=== PATIENT | female | born 1985 | race Caucasian/White ===

== ENCOUNTER 2019-12-02 20:20 | Emergency (ER) | payer OTHER, SELFPAY ==
--- NOTE | ~2019-12-02 | XR_ITS ---
XR foot LT min 3V 12/02/2019 21:02 Indication: Left foot pain Procedure: 4 views left foot Comparison: No prior studies for comparison. Findings: No acute fracture or traumatic malalignment. There are prominent degenerative calcaneal ent hesophytes. Lisfranc joint intact. No focal soft tissue abnormality. No foreign bodies. There is mild osteoarthritis of the first MTP joint. Impression: 1: No acute fracture. Reviewed, dictated and finalized at location A. Impression: 1: No acute fracture.
[2019-12-02 20:21] VITALS: RESP 16
[2019-12-02 20:38] VITALS: BP 128/71; PULSE 76; RESP 18; TEMP 36.6; O2SAT 100
--- NOTE | 2019-12-02 23:57 | ED.LOWEXIN ---
HPI - Extremity Injury (Lower) General Chief Complaint: Extremity Injury, Lower Stated Complaint: left foot injury Time Seen by Provider: 12/02/19 23:57 Source: patient and family Mode of arrival: ambulatory Limitations: no limitations History of Present Illness HPI Narrative: Patient is a 34-year-old female who presents for evaluation of right foot irritation and itchiness as well as left foot and heel pain. Heel pain in the left foot has been present for over a month. Patient states she often wears shoes that are not quite supportive and notices the pain is worse at the end of the day. No injuries. No falls. No trauma to the foot. Patient has been taking anti-inflammatories with some relief. No bruising or rash to the left foot. She does report itching, red rash to the right foot. She has not tried any [id number] medications for this. She denies any calf pain, fever, chills. No cough or shortness of breath. No chest pain. Related Data Allergies Allergy/AdvReac Type Severity Reaction Status Date / Time No Known Allergies Allergy Verified 12/02/19 20:20 Review of Systems Review of Systems: Narrative: CONSTITUTIONAL: Denies fever CARDIOVASCULAR: Denies chest pain RESPIRATORY: Denies cough or dyspnea. GASTROINTESTINAL: Denies abdominal pain SKIN: Reports red rash to the top of right foot MUSCULOSKELETAL: Denies back pain, reports left heel pain NEUROLOGIC: Denies headache PMFSH Past Medical History Medical History (Updated 12/03/19 @ 00:33 by Jeanna Castro MD) No pertinent past medical history Surgical History Surgical History (Updated 12/03/19 @ 00:33 by Jeanna Castro MD) History of tonsillectomy Family History Family History (Updated 10/21/16 @ 10:15 by DOCTOR UNKNOWN) Other Diabetes mellitus Hypertension Social History Social History Smoking status: Never smoker Alcohol intake: current Gender identity (if verbalized by the patient): Female Exam Narrative: Exam Narrative: GENERAL: Awake, alert, conversant HEAD: Normocephalic, atraumatic. EYES: PERRLA and EOMI. ENT: Nares clear, no rhinorrhea or epistaxis. Mucous membranes moist. NECK: Supple. CHEST: No respiratory distress, breathing even and non labored HEART: Regular rate, sinus rhythm ABDOMEN:Non distended, non tender EXTREMITIES: Normal range of motion. No edema. No calf tenderness bilaterally. No erythema or warmth. Full flexion and extension at the left ankle without pain or tenderness. SKIN: Dorsal aspect of right foot is erythematous, mildly excoriated. Concerning for tinea type lesions. No blistering, vesicles, no streaking erythema, mild warmth. NEURO:No focal deficits. Alert and oriented x3 Course Vital Signs Vital signs: Vital Signs Respiratory Rate 16 12/02/19 20:21 Temperature 36.6 C 12/02/19 20:38 Pulse Rate 72 12/03/19 00:20 Respiratory Rate 18 12/03/19 00:20 Blood Pressure 121/65 12/03/19 00:20 Pulse Oximetry 100 12/03/19 00:20 MDM - Extremity Injury (Lower) MDM Narrative Medical decision making narrative: Patient presented for evaluation of what appears to be atraumatic, chronic left heel pain and rash to the dorsal aspect of the right foot which does appear to be most consistent with tinea pedis. Will prescribe [id number]-ugzigfh terbinafine to treat this as patient has not tried any other antifungal treatment. As for the patient's left heel pain, she has no acute fracture found on imaging. No other findings to suggest DVT. 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 Patient was then discharged home. Differential Diagnosis Differential diagnosis: Likely ankle sprain and strain, fracture of toe and other (Tinea pedis, foot strain) Imaging Data Radiologist's impression: ITS Impressi
[2019-12-03 00:20] VITALS: BP 121/65; PULSE 72; RESP 18; O2SAT 100
== END 2019-12-03 00:47 | disposition home or self-care (01) ==
PROVIDERS: Emergency Provider Emergency Medicine
DX: B35.3 Tinea pedis (principal); S96.912A Strain of unspecified muscle and tendon at ankle and foot level, left foot, initial encounter; X58.XXXA Exposure to other specified factors, initial encounter
CPT/HCPCS: 73630; 99283

== ENCOUNTER 2022-10-03 09:17 | Outpatient (CLI) | payer OTHER, SELFPAY ==
--- NOTE | ~2022-10-03 | MM_ITS ---
EXAMINATION: MM screening [facility] HISTORY: Screening mammogram TECHNIQUE: Craniocaudal and mediolateral oblique 3-D tomosynthesis images were obtained and synthetic 2-D images were generated. CAD analysis was submitted and interpreted. COMPARISON: No prior mammogram is available for comparison at this institution. BREAST PARENCHYMAL COMPOSITION: The breasts are almost entirely fatty. FINDINGS: There is no evidence of suspicious mass, calcification, or architectural distortion to sugg est malignancy in either breast. There has been no suspicious interval change. IMPRESSION: 1. No mammographic evidence of malignancy. 2. Recommend routine screening mammography in one year. BI-RADS Category 1: Negative Reviewed, dictated and finalized at location A.
== END 2022-10-03 09:18 | disposition home or self-care (01) ==
LOC: ANHIMG 09:21
PROVIDERS: PCP Physician Assistant; Visit Provider Nurse Practitioner Obstetrics & Gynecology
DX: Z12.31 Encounter for screening mammogram for malignant neoplasm of breast (principal)
CPT/HCPCS: 77063; 77067

== ENCOUNTER 2023-01-19 16:53 | Emergency (ER) | payer SELFPAY ==
[2023-01-19 17:15] VITALS: BP 150/86; PULSE 79; RESP 20; TEMP 36.5; O2SAT 100
[2023-01-19] MEDS: CEPHALEXIN 500 MG CAPSULE PO (20:38)
--- NOTE | 2023-01-20 03:26 | ED.WOUNDLAC ---
HPI - Wound/Laceration General Chief Complaint: Wound/Laceration Stated Complaint: c section scar from 5 years ago is reopening Time Seen by Provider: 01/19/23 19:29 Source: patient Mode of arrival: ambulatory Limitations: no limitations History of Present Illness HPI narrative: 37-year-old female presents today with concerns of an old scar opening up. Patient states she noticed it this morning called her OB and was told to come to the emergency department. Patient denies any abdominal pain, fevers, body aches, chills. Denies any active bleeding from the area or drainage. Of note an old scar to the right abdomen does have purulent drainage without erythema. Related Data Allergies Allergy/AdvReac Type Severity Reaction Status Date / Time No Known Allergies Allergy Verified 01/19/23 20:38 Review of Systems Review of Systems: All systems reviewed & are unremarkable except as noted in HPI and below PMFSH Past Medical History Medical History No pertinent past medical history Surgical History Surgical History History of tonsillectomy Family History Family History Other Diabetes mellitus Hypertension Social History Social History Smoking status: Never smoker Alcohol intake: current Gender identity (if verbalized by the patient): Female Exam Const: General: cooperative, healthy appearing, comfortable, no acute distress and well developed Orientation/consciousness: patient oriented x3 HENMT: Head: normal to inspection Eyes: General: appearance normal, both eyes and all related structures Resp: Effort & Inspection: normal respiratory effort and able to speak in complete sentences Auscultation: clear to auscultation bilaterally Cardio: Rate: regular rate Rhythm: regular rhythm Heart sounds: S1 normal heart sound present and S2 normal heart sound present GI: GI Palp: Yes Soft to palpation and No Tenderness to palpation present (GI) Other: Right abdomen old scar with draining abscess noted no erythema. Suprapubic scar with small laceration proximal to the scar. No bleeding noted. Laceration is superficial. Some erythema to the abdominal folds. Neuro: General: patient oriented x3 Course Vital Signs Vital signs: Vital Signs Temperature 97.7 F 01/19/23 17:15 Pulse Rate 79 01/19/23 17:15 Respiratory Rate 20 01/19/23 17:15 Blood Pressure 150/86 H 01/19/23 17:15 Pulse Oximetry 100 01/19/23 17:15 Oxygen Delivery Room Air 01/19/23 17:15 Temperature 97.7 F 01/19/23 17:15 Pulse Rate 79 01/19/23 17:15 Respiratory Rate 20 01/19/23 17:15 Blood Pressure 150/86 H 01/19/23 17:15 Pulse Oximetry 100 01/19/23 17:15 Oxygen Delivery Room Air 01/19/23 17:15 MDM - Wound/Laceration MDM Narrative Medical decision making narrative: 37-year-old female HPI as noted. Concerns for opening up . States patient was over 5 years ago. Noticed an abnormality today with skin laceration noted proximal to the scar without bleeding at this time and is superficial without erythema or drainage. Of note to the right abdomen that patient was unaware of at another old scar was a draining abscess without erythema. Patient's pulse blood cultures within normal limits, afebrile, denies any systemic signs of infection. No indication for labs or imaging at this time. Will do a bedside test and discharged home on antibiotics and nystatin powder Differential Diagnosis Differential diagnosis: Likely abscess, abrasion and avulsion of skin Medical Records Attestation: I reviewed the patient's medical records. Lab Data Attestation: I reviewed the patient's lab results. Labs: UCG
== END 2023-01-19 20:47 | disposition home or self-care (01) ==
PROVIDERS: Emergency Provider Nurse Practitioner Family; PCP Physician Assistant
DX: O86.01 Infection of obstetric surgical wound, superficial incisional site (principal); S30.811A Abrasion of abdominal wall, initial encounter; X58.XXXA Exposure to other specified factors, initial encounter
CPT/HCPCS: 81025; 99283; A9270

== ENCOUNTER 2023-03-27 10:06 | Emergency (ER) | payer OTHER, SELFPAY ==
--- NOTE | ~2023-03-27 | XR_ITS ---
EXAMINATION: XR knee RT min 4V DATE: 03/27/2023 10:34 INDICATION: Right knee pain following injury with palpable pop TECHNIQUE: Anteroposterior, 2 oblique and crosstable lateral views of the right knee were obtained COMPARISON: None. FINDINGS: Alignment is normal. No fracture. Joint spaces appear relatively preserved on nonweightbearing imagin g however there are tiny marginal osteophytes in all 3 compartments consistent with at least mild tri compartmental osteoarthritis. No joint effusion/layering lipohemarthrosis. Subcutaneous varicosities at the lateral aspect of the right knee. Soft tissues are otherwise unremarkable. IMPRESSION: 1. No right knee joint effusion or acute osseous abnormality. Reviewed, dictated and finalized at location A. [employer]
[2023-03-27 10:13] VITALS: BP 136/85; PULSE 87; RESP 16; TEMP 36.4; O2SAT 100
--- NOTE | 2023-03-27 11:42 | ED.LOWEXIN ---
HPI - Extremity Injury (Lower) General Chief Complaint: Extremity Injury, Lower Stated Complaint: Right knee pain Time Seen by Provider: 03/27/23 11:05 Source: patient Mode of arrival: ambulatory Limitations: no limitations History of Present Illness HPI Narrative: Patient is a 37-year-old female presents to the ED with report of right knee pain. Patient reports having pain for the last 1 week. She denies significant injury, but does note that she is on her feet >50 hours per week with work. She has not been taking anything for the pain. Pain most prominent laterally. She then reports she stepped off the edge of a curb yesterday and twisted her knee, with worsening pain since then. Denies significant swelling. Denies numbness or tingling. Related Data Allergies Allergy/AdvReac Type Severity Reaction Status Date / Time No Known Allergies Allergy Verified 01/19/23 20:38 Review of Systems Review of Systems: CONSTITUTIONAL: Denies fever, chills, or sweats. MUSCULOSKELETAL: See HPI. NEUROLOGIC: Denies numbness, or weakness. All systems reviewed & are unremarkable except as noted in HPI and below PMFSH Past Medical History Medical History No pertinent past medical history Surgical History Surgical History History of tonsillectomy Family History Family History Other Diabetes mellitus Hypertension Social History Social History Smoking status: Never smoker Alcohol intake: current Gender identity (if verbalized by the patient): Female Exam Narrative: GENERAL: Well appearing, well-nourished, non-toxic, in no acute distress. HEAD: Normocephalic, atraumatic. RESPIRATORY: Airway patent, respirations nonlabored. CARDIOVASCULAR: Regular rate and rhythm without murmurs, rubs, or gallops. Pedal pulses 2+ MUSCULOSKELETAL: Moves all extremities. Mild limited flexion ROM of R knee past 90 degrees. No significant swelling noted to R anterior knee. TTP along lateral and medial joint spaces. Sensation intact. No significant lower extremity edema. SKIN: Warm, dry, normal color. NEURO: A&O X3. Speech clear. Cranial nerves II-XII grossly intact. Steady gait. No ataxic movements. PSYCHIATRIC: Appropriate mood and affect. Normal interaction. Course Vital Signs Vital signs: Vital Signs Temperature 97.6 F 03/27/23 10:13 Pulse Rate 87 03/27/23 10:13 Respiratory Rate 16 03/27/23 10:13 Blood Pressure 136/85 03/27/23 10:13 Pulse Oximetry 100 03/27/23 10:13 Oxygen Delivery Room Air 03/27/23 10:13 Temperature 97.6 F 03/27/23 10:13 Pulse Rate 87 03/27/23 10:13 Respiratory Rate 16 03/27/23 10:13 Blood Pressure 136/85 03/27/23 10:13 Pulse Oximetry 100 03/27/23 10:13 Oxygen Delivery Room Air 03/27/23 10:13 MDM - Extremity Injury (Lower) MDM Narrative Medical decision making narrative: Patient presented to ED with 1 week history of right knee pain. Patient?s injury is consistent with musculoskeletal etiology. No signs of neurologic or vascular compromise on physical examination. Compartments are soft without signs of compartment syndrome. XR without evidence for osseous abnormality, joint effusion. Pain is consistent with right knee strain. No evidence of DVT on exam, no calf tenderness, lower extremity swelling. Patient has not tried anything for pain prior to arrival. Concerned she may be as she and her are currently trying, however she has had several negative home tests. Offered to provide Tylenol or Toradol in the ED, patient amenable to Tylenol. Patient is felt to be stable for discharge home and further outpatient management and treatment. Will provide orthopedic information for follow
[2023-03-27] MEDS: ACETAMINOPHEN 500 MG TABLET 1000 MG PO (12:03)
[2023-03-27 12:21] VITALS: BP 122/89; PULSE 74; RESP 17; O2SAT 99
== END 2023-03-27 12:22 | disposition home or self-care (01) ==
PROVIDERS: Emergency Provider Physician Assistant; PCP Physician Assistant
DX: S86.911A Strain of unspecified muscle(s) and tendon(s) at lower leg level, right leg, initial encounter (principal); W17.89XA Other fall from one level to another, initial encounter
CPT/HCPCS: 73564; 99283; A9270

== ENCOUNTER 2024-01-08 16:28 | Emergency (ER) | payer OTHER, MEDICAID, SELFPAY ==
[2024-01-08 16:30] VITALS: BP 151/87; PULSE 75; RESP 20; TEMP 36.4; O2SAT 100
--- NOTE | 2024-01-08 18:16 | ED.SKABFB ---
HPI - Skin/Abscess/Foreign Bdy General Chief complaint: Skin/Abscess/Foreign Body <Yasmin Willingham PA-C - Last Filed: 01/09/24 09:15> Stated complaint: boil on abdomen <Yasmin Willingham PA-C - Last Filed: 01/09/24 09:15> Time Seen by Provider: 01/08/24 18:16 <Yasmin Willingham PA-C - Last Filed: 01/09/24 09:15> Focused HPI: This is a 38 year old female that presents to the ER for a boil on her abdomen. Present over the last 2 weeks. Reports some drainage. Reports she gets these often. Denies fevers. GENERAL: Well-appearing, well-nourished, and in no acute distress. HEAD: Normocephalic, atraumatic. CHEST: Clear to auscultation. ?No respiratory distress. HEART: Regular rate and rhythm.? NEURO: ?Alert and oriented x3. Patient screened in triage and initial orders placed.? ?Additional care and disposition to be based upon?diagnostic testing and treatment. <Yasmin Willingham PA-C - Last Filed: 01/09/24 09:15> Focused HPI: This is a 38 year old female that presents to the ER for a boil on her abdomen. Present over the last 2 weeks. Reports some drainage. Reports she gets these often. Denies fevers. GENERAL: Well-appearing, well-nourished, and in no acute distress. HEAD: Normocephalic, atraumatic. CHEST: Clear to auscultation. ?No respiratory distress. HEART: Regular rate and rhythm.? NEURO: ?Alert and oriented x3. Patient screened in triage and initial orders placed.? ?Additional care and disposition to be based upon?diagnostic testing and treatment. Agree with triage assessment. Patient told me that the boil did open on its own and drained but no longer is draining. Patient does have an open sore/wound measuring approximately 1 x 1 cm. No evidence of infection at this time, no purulent drainage or abscess palpated. Patient denies any fevers or chills at home. <Tessy Cunningham MD - Last Filed: 01/08/24 22:57> Related Data Allergies/Adverse reactions: Allergies Allergy/AdvReac Type Severity Reaction Status Date / Time No Known Allergies Allergy Verified 01/19/23 20:38 <Yasmin Willingham PA-C - Last Filed: 01/09/24 09:15> Review of Systems Review of Systems: All systems are reviewed and are negative unless stated otherwise in the HPI. <Tessy Cunningham MD - Last Filed: 01/08/24 22:57> PMFSH Past Medical History Medical History: Medical History No pertinent past medical history <Yasmin Willingham PA-C - Last Filed: 01/09/24 09:15> Surgical History Surgical History: Surgical History History of tonsillectomy <Yasmin Willingham PA-C - Last Filed: 01/09/24 09:15> Family History Family History: Family History Other Diabetes mellitus Hypertension <Yasmin Willingham PA-C - Last Filed: 01/09/24 09:15> Social History Social History: Social History Smoking status: Never smoker Alcohol intake: current Gender identity (if verbalized by the patient): Female <Yasmin Willingham PA-C - Last Filed: 01/09/24 09:15> Exam Narrative: General: Alert, awake, afebrile, in no acute distress. HEENT: PERRL, no rhinorrhea, no post nasal drip, oropharynx clear. Cardiovascular: Regular rate and rhythm, no murmurs, rubs or gallops, no peripheral edema. Respiratory: Clear to auscultation bilaterally, no tachypnea, no wheezing, no rhonchi, no rubs, no respiratory distress. Abdomen: Soft, nontender, nondistended, no rebound, no guarding, no peritoneal signs. Musculoskeletal: No joint swelling or deformity, normal muscle tone. Skin: Open sore measuring approximately 1 x 1 cm along the patient's lateral right abdominal wall, no abscess identified, no purulent drainage, surrounding erythema. Neurological: Alert and oriented to person, place, and time. Follows al
--- NOTE | 2024-01-08 18:33 | PC.NURSE ---
Wound culture collected by NIDIA Willingham
[2024-01-08 21:41] VITALS: BP 192/87; PULSE 91; RESP 18; O2SAT 97
[2024-01-08 22:05] LABS: Basophils Absolute Auto 0.1 K/mm3 (0.0-0.1); Basophils Percent Auto 0.7 % (0.2-1.2); Eosinophils Absolute Auto 0.3 K/mm3 (0-0.3); Eosinophils Percent Auto 2.3 % (0-4.4); Hematocrit 39.2 % (37.0-47.0); Hemoglobin 12.7 g/dL (12.0-15.0); Immature Granulocyte Absolute 0.04 K/mm3 (0.00-0.031); Immature Granulocyte Percent A 0.3 % (0-0.5); Lymphocytes Absolute Auto 3.95 K/mm3 (0.9-3.2); Lymphocytes Percent Auto 33.6 % (18.3-44.2); Mean Corpuscular HGB Conc 32.4 g/dl (32-36); Mean Corpuscular Hemoglobin 30.4 pg (26-34); Mean Corpuscular Volume 93.8 fl (80-100); Mean Platelet Volume 11.7 fl (7.4-10.4); Monocytes Absolute Auto 0.9 K/mm3 (0.1-0.6); Monocytes Percent Auto 7.5 % (2.6-8.5); Neutrophils Absolute Auto 6.5 K/mm3 (1.3-6.7); Neutrophils Percent Auto 55.6 % (45.5-73.1); Platelet Count Result 336 k/mm3 (150-375); Red Blood Count 4.18 M/mm3 (4.2-5.4); Red Cell Distribution Width 13.6 % (11.5-14.5); White Blood Count 11.8 K/mm3 (4.5-10.0)
[2024-01-08 22:20] LABS: Anion Gap 7 mmol/L (4-12); Blood Urea Nitrogen 7 mg/dL (7-17); CRP 1.2 mg/dL (<1.0); Calcium 8.8 mg/dL (8.4-10.2); Carbon Dioxide 28 mmol/L (22-30); Chloride 102 mmol/L (98-107); Estimated CRCL calculation 108 ml/min; Estimated Glomerular Filt Rate > 60; Glucose 96 mg/dL (65-110); Potassium 3.8 mmol/L (3.4-5.0); Sodium 137 mmol/L (137-145)
[2024-01-08 23:02] LABS: Erythrocyte Sedimentation Rate 54 mm/hr (0-20)
== END 2024-01-08 23:10 | disposition home or self-care (01) ==
PROVIDERS: Physician Assistant; Emergency Provider Emergency Medicine; PCP Physician Assistant
DX: L02.211 Cutaneous abscess of abdominal wall (principal)
CPT/HCPCS: 36415; 80048; 85025; 85652; 86140; 87070; 87081; 87181; 87205; 99283

== ENCOUNTER 2024-03-06 08:22 | Outpatient (CLI) | payer MEDICAID, SELFPAY ==
[2024-03-06 09:27] LABS: Beta HCG Quantitative < 2.39 mIU/ML
== END 2024-03-06 08:23 | disposition home or self-care (01) ==
LOC: ANHLAB 08:28
PROVIDERS: PCP Physician Assistant; Visit Provider Advanced Practice Midwife
DX: O20.0 Threatened abortion (principal); Z3A.00 Weeks of gestation of pregnancy not specified
CPT/HCPCS: 36415; 84702